=== PATIENT | female | born 1950 | race Caucasian/White ===

== ENCOUNTER → 2017-02-06 | Outpatient (CLI) | payer MEDICARE, OTHER | LOC: RT 14:01 | DX: I10 Essential (primary) hypertension (principal); R94.31 Abnormal electrocardiogram [ECG] [EKG] | CPT/HCPCS: 93005 ==

== ENCOUNTER → 2021-01-17 | Outpatient (CLI) | payer BC, MEDICARE ==
[~2021-01-17] MED LIST: ALDACTONE 25MG25 MG PO; ASPIRIN EC81 MG PO; ATENOLOL50 MG PO; AZITHROMYCIN500 MG PO; BUSPIRONE HCL7.5 MG PO; CETIRIZINE HCL10 MG PO; COZAAR 25MG TAB25 MG PO; DECADRON6 MG PO; DOXYCYCLINE HY100 M2 PO; FUROSEMIDE40 MG PO; GABAPENTIN300 MG PO; HUMIBID LA TAB600 MG PO; K-TAB ER10 MEQ PO; K-TAB ER20 MEQ PO; LASIX40 MG PO; LIPITOR40 MG PO; LOPRESSOR 50 MG50 MG PO; MONTELUKAST SOD10 MG PO; NITRO-TIME2.5 MG PO; NITROGLYCERIN0.4 MG SL; NORCO 10-325 T1 EACH PO; OMEPRAZOLE40 MG PO; PREDNISONE 20 M20 MG PO; PROAIR HFA8.5 GM INH; ULTRAM50 MG PO; VITAMIN C 500500 MG PO; XANAX 0.25 MG0.25 MG PO; ZOLOFT100 MG PO
[2021-01-17 14:18] LABS: BUN/CREATININE RATIO 39 (0-10)
== END ==
LOC: MRI 13:33
PROVIDERS: Orthopaedic Surgery
DX: R22.32 Localized swelling, mass and lump, left upper limb (principal); M75.92 Shoulder lesion, unspecified, left shoulder
CPT/HCPCS: 73223; 80048; A9577

== ENCOUNTER → 2021-04-14 | Outpatient (CLI) | payer BC, MEDICARE | LOC: HEART 5 11:22 | DX: Z09 Encounter for follow-up examination after completed treatment for conditions other than malignant neoplasm (principal); Z86.16 Personal history of COVID-19; J98.8 Other specified respiratory disorders | CPT/HCPCS: 71046; 94060; 94729 ==

== ENCOUNTER 2021-04-23 09:22 | Inpatient (IN) | payer BC, MEDICARE ==
[~2021-04-23] VITALS: Ht 157.5 cm; Wt 81.6 kg
[~2021-04-23 09:22] MED LIST changes: -ALDACTONE 25MG25 MG PO; -ASPIRIN EC81 MG PO; -BUSPIRONE HCL7.5 MG PO; -CETIRIZINE HCL10 MG PO; -COZAAR 25MG TAB25 MG PO; -DOXYCYCLINE HY100 M2 PO; -FUROSEMIDE40 MG PO; -GABAPENTIN300 MG PO; -K-TAB ER10 MEQ PO; -LOPRESSOR 50 MG50 MG PO; -NITROGLYCERIN0.4 MG SL; -OMEPRAZOLE40 MG PO; -ZOLOFT100 MG PO
[2021-04-23 11:07] LABS: BUN/CREATININE RATIO 32 (0-10)
[2021-04-23 12:05] LABS: HEMOGLOBIN 11.9 gm/dl (12.3-15.3); RED BLOOD COUNT 4.9 M/UL (4.00-5.10); WHITE BLOOD COUNT 11.4 K/UL (4.5-11.0)
[2021-04-23] MEDS ORDERED: BUSPIRONE HCL7.5 MG PO (13:44)
[2021-04-23] MEDS ORDERED: CETIRIZINE HCL10 MG PO (13:45)
[2021-04-23] MEDS ORDERED: ZOLOFT100 MG PO (23:10)
[2021-04-23] MEDS ORDERED: OMEPRAZOLE40 MG PO (23:11)
[2021-04-23] MEDS ORDERED: GABAPENTIN300 MG PO (23:12)
[2021-04-24 03:59] LABS: HEMOGLOBIN 11.7 gm/dl (12.3-15.3); RED BLOOD COUNT 4.75 M/UL (4.00-5.10); WHITE BLOOD COUNT 9.6 K/UL (4.5-11.0)
[2021-04-24 04:13] LABS: BUN/CREATININE RATIO 21 (0-10)
[2021-04-25 04:30] LABS: RED BLOOD COUNT 4.88 M/UL (4.00-5.10)
[2021-04-25 04:35] LABS: WHITE BLOOD COUNT 13.1 K/UL (4.5-11.0)
[2021-04-25 04:56] LABS: BUN/CREATININE RATIO 22 (0-10)
[2021-04-26 04:17] LABS: BUN/CREATININE RATIO 25 (0-10)
[2021-04-26 08:44] LABS: HEMOGLOBIN 11.8 gm/dl (12.3-15.3); RED BLOOD COUNT 4.69 M/UL (4.00-5.10)
[2021-04-27 04:28] LABS: HEMOGLOBIN 11.6 gm/dl (12.3-15.3); RED BLOOD COUNT 4.75 M/UL (4.00-5.10); WHITE BLOOD COUNT 11.8 K/UL (4.5-11.0)
[2021-04-27 05:05] LABS: BUN/CREATININE RATIO 23 (0-10)
[2021-04-27] MEDS ORDERED: ALDACTONE 25MG25 MG PO (10:07)
[2021-04-27] MEDS ORDERED: DOXYCYCLINE HY100 M2 PO (10:07)
[2021-04-27] MEDS ORDERED: NITROGLYCERIN0.4 MG SL (10:07)
[2021-04-27] MEDS ORDERED: FUROSEMIDE40 MG PO (10:07)
[2021-04-27] MEDS ORDERED: LOPRESSOR 50 MG50 MG PO (10:07)
[2021-04-27] MEDS ORDERED: COZAAR 25MG TAB25 MG PO (10:07)
[2021-04-27] MEDS ORDERED: ASPIRIN EC81 MG PO (10:07)
[2021-04-27] MEDS ORDERED: K-TAB ER10 MEQ PO (10:19)
--- NOTE | 2021-04-27 10:41 | NUR ---
PATINTS IV IS SORE. PROVIDER IS AWARE. PROVIDER STATED PATIENT WILL GO HOME TODAY AND DOESN'T NEED TO HAVE A NEW IV STARTED AT THIS TIME. CHARGE NURSE ISRAEL CHANDLER RN WAS ASKED TO PLACE NEW IV PATIENT IS A HARD STICK AND THIS IS THE INFORMATION SHE RELAYED PER HER CONVERSATION WITH DR. FLORES.
--- NOTE | 2021-04-27 15:27 | NUR ---
18g x 10cm midline placed using ultrasound. Peripheral access needed for CT with contrast. Poor peripheral access with multiple IV attempts prior to midline insertion. Aspirates and flushes well.
== END 2021-04-27 18:18 | disposition home or self-care (01) | DRG 286 ==
LOC: ER1 09:22 → MED SURG 4 11:38 → CDU 11:38 → MED SURG 4 13:36
PROVIDERS: Emergency Medicine; Internal Medicine Cardiovascular Disease; Physician Assistant; ADMIT Internal Medicine
PROC: 4A023N7 Measurement of Cardiac Sampling and Pressure, Left Heart, Percutaneous Approach (ICD-10-PCS; principal; 2021-04-25)
PROC: B211YZZ Fluoroscopy of Multiple Coronary Arteries using Other Contrast (ICD-10-PCS; 2021-04-25)
PROC: B41FYZZ Fluoroscopy of Right Lower Extremity Arteries using Other Contrast (ICD-10-PCS; 2021-04-25)
DX: I25.10 Atherosclerotic heart disease of native coronary artery without angina pectoris (principal); I50.21 Acute systolic (congestive) heart failure; J98.11 Atelectasis; I44.7 Left bundle-branch block, unspecified; Z20.822 Contact with and (suspected) exposure to COVID-19; I10 Essential (primary) hypertension; E78.5 Hyperlipidemia, unspecified; R00.0 Tachycardia, unspecified; F41.9 Anxiety disorder, unspecified; I27.20 Pulmonary hypertension, unspecified; I08.1 Rheumatic disorders of both mitral and tricuspid valves; I71.4 Abdominal aortic aneurysm, without rupture; J40 Bronchitis, not specified as acute or chronic; I11.0 Hypertensive heart disease with heart failure; I42.8 Other cardiomyopathies; R06.00 Dyspnea, unspecified; Z96.641 Presence of right artificial hip joint; Z86.16 Personal history of COVID-19; Z90.11 Acquired absence of right breast and nipple; Z88.5 Allergy status to narcotic agent; Z87.891 Personal history of nicotine dependence; Z85.3 Personal history of malignant neoplasm of breast; Z88.0 Allergy status to penicillin; Z80.0 Family history of malignant neoplasm of digestive organs; Z79.82 Long term (current) use of aspirin; Z90.49 Acquired absence of other specified parts of digestive tract
CPT/HCPCS: ECHO; 36415; 71045; 71046; 78452; 80048; 80053; 82550; 82553; 83735; 83874; 83880; 84132; 84484; 85025; 85027; 85379; 93005; 93017; 93306; 94640; 94664; 94760; 96374; 96375; 96376; 99152; 99285; A9502; C1751; C1769; C1894; G0378; J1644; J1940; J2250; J2405; J2785; J7040; Q9967; U0002

== ENCOUNTER → 2021-07-25 | Outpatient (CLI) | payer MEDICARE ==
[~2021-07-25] MED LIST changes: +ALDACTONE 25MG25 MG PO; +ASPIRIN EC81 MG PO; +BUSPIRONE HCL7.5 MG PO; +CETIRIZINE HCL10 MG PO; +COZAAR 25MG TAB25 MG PO; +DOXYCYCLINE HY100 M2 PO; +FUROSEMIDE40 MG PO; +GABAPENTIN300 MG PO; +K-TAB ER10 MEQ PO; +LOPRESSOR 50 MG50 MG PO; +NITROGLYCERIN0.4 MG SL; +OMEPRAZOLE40 MG PO; +ZOLOFT100 MG PO
== END ==
LOC: HEART 5 05-16 13:00
DX: I34.0 Nonrheumatic mitral (valve) insufficiency (principal); I42.9 Cardiomyopathy, unspecified; I50.21 Acute systolic (congestive) heart failure
CPT/HCPCS: 93306

== ENCOUNTER → 2021-08-12 | Outpatient (CLI) | payer MEDICARE ==
[~2021-08-12] MED LIST changes: +CLINDAMYCIN HC300 MG PO; +HYDROCODON-ACE1 EAC2 PO; +LEVOFLOXACIN500 MG PO; +SYMBICORT 16010.2 GM INH; +VITAMIN D3125 MCG PO
[2021-08-12 11:11] LABS: HEMOGLOBIN 13.2 gm/dl (12.3-15.3); RED BLOOD COUNT 4.96 M/UL (4.00-5.10); WHITE BLOOD COUNT 15.7 K/UL (4.5-11.0)
[2021-08-12 11:27] LABS: BUN/CREATININE RATIO 29 (0-10)
== END ==
LOC: LAB 10:34
PROVIDERS: Internal Medicine Cardiovascular Disease
DX: I11.0 Hypertensive heart disease with heart failure (principal); I50.9 Heart failure, unspecified; I42.9 Cardiomyopathy, unspecified; R06.02 Shortness of breath; E11.9 Type 2 diabetes mellitus without complications
CPT/HCPCS: 36415; 80048; 81001; 85025; 85610; 85730; 93005

== ENCOUNTER 2021-08-16 07:08 | Outpatient (CLI) | payer MEDICARE, MEDICAID ==
[~2021-08-16] VITALS: Ht 157.5 cm; Wt 80.3 kg
[~2021-08-16 07:08] MED LIST changes: -CLINDAMYCIN HC300 MG PO; -HYDROCODON-ACE1 EAC2 PO; -LEVOFLOXACIN500 MG PO; -SYMBICORT 16010.2 GM INH; -VITAMIN D3125 MCG PO
[2021-08-16] MEDS ORDERED: HYDROCODON-ACE1 EAC2 PO (07:36)
[2021-08-16] MEDS ORDERED: VITAMIN D3125 MCG PO (07:37)
[2021-08-16] MEDS ORDERED: SYMBICORT 16010.2 GM INH (07:39)
[2021-08-16] MEDS ORDERED: CLINDAMYCIN HC300 MG PO (11:50)
[2021-08-16] MEDS ORDERED: LEVOFLOXACIN500 MG PO (11:50)
== END 2021-08-17 15:32 | disposition home or self-care (01) ==
LOC: CATH 07:08 → MED SURG 4 13:04 → CATH 08-17 15:32
DX: I42.0 Dilated cardiomyopathy (principal); I50.22 Chronic systolic (congestive) heart failure; I10 Essential (primary) hypertension; I25.10 Atherosclerotic heart disease of native coronary artery without angina pectoris; Z87.891 Personal history of nicotine dependence; I44.7 Left bundle-branch block, unspecified; E78.5 Hyperlipidemia, unspecified; J45.909 Unspecified asthma, uncomplicated; K21.9 Gastro-esophageal reflux disease without esophagitis; Z86.16 Personal history of COVID-19; E11.42 Type 2 diabetes mellitus with diabetic polyneuropathy; G47.33 Obstructive sleep apnea (adult) (pediatric); Z88.5 Allergy status to narcotic agent; Z88.0 Allergy status to penicillin; Z88.8 Allergy status to other drugs, medicaments and biological substances; Z20.822 Contact with and (suspected) exposure to COVID-19
CPT/HCPCS: 33225; 33249; 71045; 82962; 93005; 93641; 94640; 94664; 99152; 99153; C1769; C1777; C1882; C1898; C1900; J1200; J1644; J2250; J3010; J3370; J7040; J7050; J7070; Q9965

== ENCOUNTER → 2021-10-13 | Outpatient (CLI) | payer MEDICARE ==
[~2021-10-13] MED LIST changes: +CLINDAMYCIN HC300 MG PO; +HYDROCODON-ACE1 EAC2 PO; +LEVOFLOXACIN500 MG PO; +SYMBICORT 16010.2 GM INH; +VITAMIN D3125 MCG PO
== END ==
LOC: MAMO 09-23 10:00
DX: Z12.31 Encounter for screening mammogram for malignant neoplasm of breast (principal); Z90.11 Acquired absence of right breast and nipple
CPT/HCPCS: 77063; 77067

== ENCOUNTER → 2021-12-06 | Outpatient (CLI) | payer MEDICARE ==
[2021-12-06 17:22] LABS: HEMOGLOBIN 11.8 gm/dl (12.3-15.3); RED BLOOD COUNT 4.56 M/UL (4.00-5.10); WHITE BLOOD COUNT 10.6 K/UL (4.5-11.0)
== END ==
LOC: LAB 15:34
PROVIDERS: Allergy & Immunology
DX: Z91.018 Allergy to other foods (principal)
CPT/HCPCS: 36415; 82785; 85025

== ENCOUNTER → 2022-03-28 | Outpatient (CLI) | payer MEDICARE | LOC: EXRD 13:40 | DX: M25.552 Pain in left hip (principal) | CPT/HCPCS: 73502 ==

== ENCOUNTER → 2022-04-04 | Outpatient (CLI) | payer MEDICARE | LOC: EXRD 13:40 | DX: M54.50 Low back pain, unspecified (principal); M47.816 Spondylosis without myelopathy or radiculopathy, lumbar region | CPT/HCPCS: 72100 ==

== ENCOUNTER 2022-04-11 14:53 | Emergency (ER) | payer MEDICARE ==
[2022-04-11 16:28] LABS: HEMOGLOBIN 11.3 gm/dl (12.3-15.3); RED BLOOD COUNT 4.54 M/UL (4.00-5.10); WHITE BLOOD COUNT 11.2 K/UL (4.5-11.0)
[2022-04-11 16:49] LABS: BUN/CREATININE RATIO 25 (0-10)
== END 2022-04-11 23:30 | disposition left against medical advice (07) ==
LOC: ER1 14:53
PROVIDERS: Physician Assistant
DX: N28.1 Cyst of kidney, acquired (principal); I11.0 Hypertensive heart disease with heart failure; I50.9 Heart failure, unspecified; E78.5 Hyperlipidemia, unspecified; J44.9 Chronic obstructive pulmonary disease, unspecified
CPT/HCPCS: 80053; 81001; 83690; 85025; 99283; Q9967

== ENCOUNTER → 2022-04-13 | Outpatient (CLI) | payer MEDICARE | LOC: US 15:19 → KOH-I 15:30 | DX: R60.0 Localized edema (principal) | CPT/HCPCS: 93971 ==

== ENCOUNTER → 2022-05-10 | Outpatient (CLI) | payer MEDICARE | LOC: MRI 10:50 | DX: M51.9 Unspecified thoracic, thoracolumbar and lumbosacral intervertebral disc disorder (principal); M53.3 Sacrococcygeal disorders, not elsewhere classified; Z87.891 Personal history of nicotine dependence | CPT/HCPCS: 72148 ==

== ENCOUNTER → 2022-06-26 | Outpatient (CLI) | payer MEDICARE | LOC: EXRD 15:00 | DX: M81.0 Age-related osteoporosis without current pathological fracture (principal); M85.80 Other specified disorders of bone density and structure, unspecified site | CPT/HCPCS: 77080 ==

== ENCOUNTER → 2022-07-13 | Outpatient (CLI) | payer MEDICARE | LOC: RT 13:51 | DX: I10 Essential (primary) hypertension (principal); I44.7 Left bundle-branch block, unspecified | CPT/HCPCS: 93005 ==